=== PATIENT | female | born 1955 | race Caucasian/White ===

== ENCOUNTER → 2017-07-12 | Outpatient (CLI) | payer BC ==
[~2017-07-12] MED LIST: AMOXICILLIN500 M3 PO; CIPROFLOXACIN500 MG PO; CIPROFLOXACIN750 MG PO; DIFLUCAN PO; DOXYCYCLINE100 M3 PO; HYDROCODONE BIT1 T11 PO; KEFLEX500 MG PO; KENALOG 0.1% OI15 GM T; LISINOPRIL10 M1 PO; Motrin,Rufen800 MG PO; NEURONTIN100 MG PO; NEXIUM40 MG PO; Nizoral 2%15 GM T; TENORMIN50 MG PO; VICODIN 5/500 505 MG PO; VICODIN 500 MG-1 TAB PO
== END | disposition home or self-care (01) ==
LOC: US 10:28
DX: M47.897 Other spondylosis, lumbosacral region (principal); R60.0 Localized edema; G95.89 Other specified diseases of spinal cord; G89.29 Other chronic pain; Z96.651 Presence of right artificial knee joint